=== PATIENT | female | born 1975 | race Caucasian/White ===

== ENCOUNTER 2017-01-18 10:15 | Day surgery (SDC) | payer OTHER ==
[~2017-01-18 10:15] MED LIST: Bupivacaine 0.5% 50 ML MDV ONE; Lidocaine 1% with EPINEPHrine 1:100,000 50 ML MDV ONE; Midazolam 1 MG/ML 2 ML SDV ONE; Propofol 200 MG/20 ML SDV ONE; fentaNYL 100 MCG/2 ML SDV ONE
[2017-01-18] MEDS ORDERED: Sodium Chloride 0.9% 1,000 ML IV SCH (11:15)
[2017-01-18] MEDS ORDERED: ceFAZolin 2 GM in Sodium Chloride 0.9% 100 ML IV ONE (11:30)
[2017-01-18] MEDS ORDERED: ceFAZolin 2 GM in Sodium Chloride 0.9% 50 ML IV ONE (11:30)
[2017-01-18] MEDS ORDERED: Propofol 200 MG/20 ML SDV ONE (11:54)
[2017-01-18 13:42] VITALS: BP 121/98
--- NOTE | 2017-01-19 14:18 | OR ---
DATE OF PROCEDURE: 01/18/2017 PROCEDURES PERFORMED: 1. Excision of fibroadenoma at the 12 o'clock position (noted as 1 cm from the nipple on ultrasound). 2. Vacuum-assisted ultrasound-guided biopsy of mass noted at 12 o'clock position, at 3 cm from the nipple on ultrasound positioning. COMPLICATIONS: None. ASSISTANTS: None. ANESTHESIA: MAC/local. INDICATIONS: This is a pleasant 41-year-old female who had previously had a fibroadenoma biopsied, and this has become symptomatic and requires excision. In addition, the patient also had a new mass probably consistent with fibroadenoma at the 3 o'clock position requiring biopsy. PREOPERATIVE DIAGNOSES: 1. Fibroadenoma. 2. New lesion at 3 o'clock, 3 cm from nipple at 12 o'clock position. POSTOPERATIVE DIAGNOSES: 1. Fibroadenoma. 2. New lesion at 3 o'clock, 3 cm from nipple at 12 o'clock position. RISKS: Risks, benefits, alternatives, and limitations including, but not limited to infection, bleeding, hematoma and seroma formation were explained to the patient. We also discussed false-positives and false-negatives requirement for reoperation. The patient understands these risks and wishes to proceed. PROCEDURE IN DETAIL: The patient was placed in supine position. The left breast was prepped and draped. The 2 lesions were previously marked by the patient and corroborated with the ultrasound. Using 11 megahertz ultrasound probe, a 14-gauge [employer]oup[employer] vacuum biopsy gun was introduced on the lateral aspect. This was clearly seen passing through the lesion 3 cm from the nipple at the 12 o'clock position. This would be cord total of 3 times. Specimens were noted to be white in nature consistent with a nontypical architecture. After this, a single clip was placed in the lesion. Dermabond was applied to that wound. The fibroadenoma was addressed next. A wire was placed within this under ultrasound guidance. An incision was made on the superior aspect of the nipple. This was carried down with electrocautery to the mass. A metal wire coating operator was used to transect the wire, but at the end was noted to be completely within the specimen. Electrocautery was used to excise the lesion and sent for pathology. The wound was inspected and minimal bleeding was controlled with electrocautery. This was then thoroughly irrigated and closed with layers of 3-0 Vicryl, 4-0 Vicryl, and Dermabond. The patient tolerated the procedure well. Demarcus Reese MD /[id number]
== END 2017-01-18 13:45 | disposition home or self-care (01) ==
LOC: JP.SDS 10:15
PROVIDERS: ATTEND Surgery
DX: D24.2 Benign neoplasm of left breast (principal); N60.82 Other benign mammary dysplasias of left breast; R92.1 Mammographic calcification found on diagnostic imaging of breast; K21.9 Gastro-esophageal reflux disease without esophagitis
CPT/HCPCS: 19083; 19125; J2250; J2704; J3010; J7040; 88305